=== PATIENT | male | born 1990 | race Caucasian/White ===

== ENCOUNTER 2024-04-11 09:46 | Emergency (ER) | payer OTHER, SELFPAY ==
--- NOTE | ~2024-04-11 | XR_ITS ---
EXAMINATION: XR CHEST CLINICAL INFORMATION: Chest pain COMPARISON: None available. TECHNIQUE: 2 views of the chest were obtained. FINDINGS: No significant abnormality is noted involving the heart, lungs, mediastinum, bony thorax or soft tissues. XR/XR chest 2V IMPRESSION: No acute cardiopulmonary disease
[2024-04-11 09:58] VITALS: BP 183/107; PULSE 68; RESP 19; TEMP 36.6; O2SAT 98; BMI 28.3
--- NOTE | 2024-04-11 10:04 | ECG_ITS ---
Test Reason : diff breathing/ tightness Blood Pressure : / mmHG Vent. Rate : 056 BPM Atrial Rate : 056 BPM P-R Int : 162 ms QRS Dur : 094 ms QT Int : 406 ms P-R-T Axes : 041 -03 014 degrees QTc Int : 391 ms Sinus bradycardia Possible Anterior infarct , age undetermined - could be related to body habitus and lead placement Abnormal ECG No previous ECGs available Referred By: Generic ED Physician Electronically Signed By:LUZ MARINA JOSEPH
[2024-04-11 10:31] LABS: MANUAL DIFF FLAG NO
[2024-04-11 10:34] LABS: Basophils Percent Auto 0.1 % (0-2); Eosinophils Absolute Auto 0.2 X10*3/uL (0.0-0.4); Eosinophils Percent Auto 2.8 % (0-4); Hematocrit 48.1 % (42.0-52.0); Imm Gran Abs Auto 0.02 X10*3/uL (0.00-0.03); Imm Gran Pct Auto 0.3 % (0.0-0.4); Lymphocytes Absolute Auto 1.3 X10*3/uL (1.2-4.9); Lymphocytes Percent Auto 19.1 % (20-40); Mean Corpuscular HGB Conc 33.3 g/dl (31.0-36.0); Mean Corpuscular Hemoglobin 25.9 pg (27.0-33.0); Mean Corpuscular Volume 77.8 fL (80.0-98.0); Mean Platelet Volume 9.8 fL (9.4-12.4); Monocytes Absolute Auto 0.5 X10*3/uL (0.1-1.2); Monocytes Percent Auto 7.2 % (2-11); Neutrophils Absolute Auto 4.8 x10*3/uL (2.0-8.3); Neutrophils Percent Auto 70.5 % (45-73); Platelet Count 228 X10*3/uL (160-400); Red Blood Count 6.18 X10*6/uL (4.60-5.80); Red Cell Distribution Width 14.5 % (11.0-16.0); White Blood Count 6.8 X10*3/uL (4.8-10.8)
[2024-04-11 10:56] LABS: Troponin-I High Sensitivity 6.3 ng/L (<3.5-35.0)
[2024-04-11 11:07] LABS: Anion Gap 11 (12-20); Blood Urea Nitrogen 15 mg/dL (9-16); Calcium 9.8 mg/dL (8.4-10.2); Carbon Dioxide 27 mmol/L (22-29); Chloride 108 mmol/L (96-108); Creatinine Clr Calc Pharmacy 153.6; Estimated Glomerular Filt Rate > 60; Glucose Random 97 mg/dL (60-115); Potassium 3.6 mmol/L (3.3-5.1); Sodium 142 mmol/L (135-145)
[2024-04-11 11:18] VITALS: BP 166/102; PULSE 68; RESP 18; TEMP 36.6; O2SAT 98
--- NOTE | 2024-04-11 11:18 | ED.GENADULT ---
HPI - General Adult General Chief complaint: General Medical Stated complaint: ear pain and bleeding Time Seen by Provider: 04/11/24 11:25 Source: patient and family Mode of arrival: ambulatory Limitations: no limitations History of Present Illness ED Provider: Valerie Romero PA-C HPI narrative: 33-year-old male with history of hypertension, noncompliant with medications, history of ruptured ear drum over 2 months ago who presents to the ER for evaluation of ongoing right ear pain. He states he was seen at [facility] where he was prescribed a topical antibiotic drops but never had it filled because it was 500 dollars. He states he continues to have pain in the ear with some bloody drainage at times. Denies any hearing loss, tinnitus or dizziness. He was unable to follow-up with ENT because he needed a referral from his primary care doctor. On arrival to the ER patient is found to be hypertensive. He is noncompliant with his Norvasc. He states he only takes it when he gets chest pain which is from time to time. His last episode of chest pain was 2 days ago. It is sharp and nonradiating, comes and goes without intervention, activity or stress. No associated shortness of breath or diaphoresis. MD complaint: Right ear pain Onset (ago): week(s) Location: head Radiation: non-radiation Severity: moderate Severity scale (1-10): 8 Quality: aching Pain Consistency: constant Relieving factors: none Exacerbating factors: none Associated symptoms: denies other symptoms Treatments prior to arrival: none Related Data Previous Rx's ?Medication ?Instructions ?Recorded amlodipine 10 mg tablet (Norvasc) 10 mg PO DAILY #30 tabs 04/11/24 ofloxacin 0.3 % ear drops 10 drp otic (ears) DAILY 7 days 04/11/24 #10 mL Allergies Allergy/AdvReac Type Severity Reaction Status Date / Time morphine Allergy Unknown Verified 04/11/24 10:00 Review of Systems Review of Systems: Yes all other systems are reviewed and are negative PMFSH Social History Social History Advance Directives: No Advance Directives Information Provided: Yes Do you have a plan to hurt others: No Plan Physical Exam ED Vital Signs: Vital Signs - 24 hr 04/11/24 09:58 04/11/24 11:18 04/11/24 11:33 Temperature 98 F 98 F 98.1 F Pulse Rate 68 68 63 Respiratory Rate 19 18 18 Blood Pressure 183/107 H 166/102 H 166/102 H Pulse Oximetry 98 98 97 Oxygen Delivery Method Room Air Room Air BMI result Body Mass Index 28.3 Appearance: Alert. Oriented X3. No acute distress. HEENT: normal external inspection. Left ear with normal EAC and TM. Right ear with erythematous external auditory canal, dried blood in the ear canal. Unable to visualize the entire tympanic membrane, partially visualized tympanic membrane is white, not bulging. Scar tissue present CVS: Normal heart rate and rhythm. Pulses normal. Respiratory: No respiratory distress. Lungs are clear throughout Skin: Skin warm and dry. Normal skin color. Normal skin turgor. No rashes. Extremities: Normal inspection x4, no joint swelling. Neuro: Oriented X 3. No motor deficit. No sensory deficit. Course Course Course Narrative: This is a Rapid Medical Examination (RME) performed by Valerie Romero PA-C in triage. Full HPI, ROS, assessment and treatment plan per primary provider in the Main ED. 33 yo male with history of HTN, noncompliant with medications presents to the ER for evaluation of ongoing right sided ear pain for the last 2 months s/p perforation. Plan: Medical Decision Making Medical Decision Making MDM Narrative: 33-year-old male with history of untreated hypertension presents to the ER for evaluation of right ear pain for the last couple of months after he perforated his eardrum. He was seen at [facility] for this but was not able to use the prescribed antibiotic drops because they were too expensive. He has ongoing pain and drainage from the ear. On examination there is dried blood in the ear canal, erythematous ear canal with a normal partially visualized tympanic membrane. No evidence of cellulitis or mastoiditis. Will treat for acute otitis externa with ofloxacin which should be more affordable than Ciprodex. Patient was hypertensive to the 180s on arrival. He reports intermittent bouts of chest pain for the last several weeks. No current chest pain. Repeat blood pressure is 160/100. Lab workup is reassuring with a nonischemic troponin. EKG without ischemic changes. We discussed the importance of medication compliance and monitoring BP at home. He will follow up with his primary care doctor. New prescription for Norvasc has been sent to his pharmacy as he does not have any left at home. Return precautions were discussed. Stable for discharge home Differential Diagnosis Differential Diagnoses: The differential diagnosis associated with the presentation includes Otitis media, otitis externa, tympanic membrane perforation, chronic ear infection Admission/Observation Consideration of admission/observation: Escalation of care including admission/observation considered Blood pressure 183/107 initially, considered observation however blood pressure improved to 166/102 on its own without intervention. Lab Data MDM Lab Attestation statement: I reviewed the patient's lab results. No leukocytosis, normal renal function, no anemia 04/11/24 10:26 04/11/24 10:26 Labs: Lab Results 04/11/24 Range/Units 10:26 WBC 6.8 (4.8-10.8) X10*3/uL RBC 6.18 H (4.60-5.80) X10*6/uL Hgb 16.0 (14.0-18.0) g/dl Hct 48.1 (42.0-52.0) % MCV 77.8 L (80.0-98.0) fL MCH 25.9 L (27.0-33.0) pg MCHC 33.3 (31.0-36.0) g/dl RDW 14.5 (11.0-16.0) % Plt Count 228 (160-400) X10*3/uL MPV 9.8 (9.4-12.4) fL Immature Gran % (Auto) 0.3 (0.0-0.4) % Neut % (Auto) 70.5 (45-73) % Lymph % (Auto) 19.1 L (20-40) % [place] % (Auto) 7.2 (2-11) % Eos % (Auto) 2.8 (0-4) % Baso % (Auto) 0.1 (0-2) % Lymph # (Auto) 1.3 (1.2-4.9) X10*3/uL [place] # (Auto) 0.5 (0.1-1.2) X10*3/uL Eos # (Auto) 0.2 (0.0-0.4) X10*3/uL Baso # (Auto) 0.0 (0.0-0.2) X10*3/uL Abs Immat Gran (auto) 0.02 (0.00-0.03) X10*3/uL Absolute Neuts (auto) 4.8 (2.0-8.3) x10*3/uL Absolute Nucleated RBC 0.000 (0.0-0.012) X10*3/uL Nucleated RBC % (auto) 0.0 (0.0-0.2) /100WBC Sodium 142 (135-145) mmol/L Potassium 3.6 (3.3-5.1) mmol/L Chloride 108 (96-108) mmol/L Carbon Dioxide 27 (22-29) mmol/L Anion Gap 11 L (12-20) BUN 15 (9-16) mg/dL Creatinine 0.88 (0.5-1.4) mg/dL Estim Creat Clear Calc 153.6 Estimated GFR > 60 Random Glucose 97 (60-115) mg/dL Calcium 9.8 (8.4-10.2) mg/dL Troponin I High Sens 6.3 (<3.5-35.0) ng/L Independent Interpretation I performed an independent interpretation of an: EKG and Plain X-Ray Interpretation: EKG with sinus bradycardia, ventricular rate 56 beats per minute, normal WA interval, normal QTC, no ST segment elevations or depressions. Chest x-ray clear without any evidence of focal infiltrate, pneumothorax or effusion. Radiology Impression Discussion of test interpretation with radiology: I have reviewed the radiologist's reading. Radiologist Impression: EXAMINATION: XR CHEST CLINICAL INFORMATION: Chest pain COMPARISON: None available. TECHNIQUE: 2 views of the chest were obtained. FINDINGS: No significant abnormality is noted involving the heart, lungs, mediastinum, bony thorax or soft tissues. XR/XR chest 2V IMPRESSION: No acute cardiopulmonary disease External Record Review External record reviewed: Primary care record Prescription Management I considered prescription management with: Pain Medication, Antibiotic and Other (Antihypertensive) Chronic Conditions Patient?s care impacted by: Hypertension Social Determinants Patient?s care significantly limited by Social Determinants of Health including: Other Social Determinant of Health Critical Care Time Critical Care Time Critical Care Time: No Discharge Plan Discharge Clinical Impression: Otitis externa, Hypertension Patient Disposition: Home, Self-Care Instructions: Otitis Externa (DC), Hypertension (ED) Additional Instructions: Topical antibiotic drops as directed for 1 week. Do not get water in your ear. Take your prescribed blood pressure medication as directed. It is important follow-up with your primary care doctor for management of your blood pressure. If you develop new or worsening symptoms call 911 or come back to the ER for further evaluation. Prescriptions: New ofloxacin 0.3 % drops 10 drp otic (ears) DAILY 7 Days Qty: 10 0RF amlodipine [Norvasc] 10 mg tablet 10 mg PO DAILY Qty: 30 0RF Stand Alone Forms: Work/School Release Interventions: ED Discharge Assessment Last Done: 04/11/24 11:33 Print Language: Kinyarwanda
[2024-04-11 11:33] VITALS: BP 166/102; PULSE 63; RESP 18; TEMP 36.7; O2SAT 97
== END 2024-04-11 11:33 | disposition home or self-care (01) ==
PROVIDERS: Emergency Provider Emergency Medicine; PCP Physician Assistant
DX: H60.91 Unspecified otitis externa, right ear (principal); I10 Essential (primary) hypertension; R07.9 Chest pain, unspecified; Z91.148 Patient's other noncompliance with medication regimen for other reason
CPT/HCPCS: 36415; 71046; 80048; 84484; 85025; 93005; 99282; 99283

== ENCOUNTER → 2024-04-11 10:04 | Outpatient (BNV) | payer OTHER, SELFPAY | PROVIDERS: Emergency Provider Emergency Medicine; PCP Physician Assistant; Visit Provider Internal Medicine | DX: R00.1 Bradycardia, unspecified (principal) | CPT/HCPCS: 93010 ==